=== PATIENT | male | born 1990 | race Native Hawaiian/Other Pacific Islander ===

== ENCOUNTER 2016-09-27 23:44 | Emergency (ER) | payer OTHER ==
[~2016-09-27] VITALS: Ht 175.3 cm; Wt 107.0 kg
[2016-09-28 02:14] VITALS: BP 112/77; TEMP 99.2
== END 2016-09-28 02:15 | disposition home or self-care (01) ==
LOC: ED 23:44
DX: J02.0 Streptococcal pharyngitis (principal); J20.9 Acute bronchitis, unspecified
CPT/HCPCS: 36415; 87804; 87880; 96361; 96374; 96375; 99284; J0558; J0561; J1100; J1885; J2405

== ENCOUNTER 2016-12-30 18:49 | Emergency (ER) | payer OTHER ==
[~2016-12-30] VITALS: Ht 175.3 cm; Wt 108.0 kg
[2016-12-30 19:31] LABS: PLATELET COUNT 307 K/uL (142-355)
[2016-12-30 19:36] LABS: POTASSIUM 3.8 mmol/L (3.6-5.2); SODIUM 137 mmol/L (136-145)
[2016-12-30 20:14] VITALS: BP 134/74; TEMP 98
== END 2016-12-30 20:14 | disposition home or self-care (01) ==
LOC: ED 18:49
DX: R07.89 Other chest pain (principal); I49.8 Other specified cardiac arrhythmias
CPT/HCPCS: 36415; 80053; 82550; 82553; 84484; 85027; 99283

== ENCOUNTER 2017-04-02 00:13 | Emergency (ER) | payer OTHER ==
[~2017-04-02] VITALS: Ht 177.8 cm; Wt 1081.8 kg
[2017-04-02 01:36] VITALS: BP 134/84; TEMP 98.3
== END 2017-04-02 01:41 | disposition home or self-care (01) ==
LOC: ED 00:13
PROC: 0HQFXZZ Repair Right Hand Skin, External Approach (ICD-10-PCS; principal; 2017-04-02)
DX: S61.011A Laceration without foreign body of right thumb without damage to nail, initial encounter (principal); W22.8XXA Striking against or struck by other objects, initial encounter; Y92.098 Other place in other non-institutional residence as the place of occurrence of the external cause
CPT/HCPCS: 99283